=== PATIENT | male | born 1975 | race Caucasian/White ===

== ENCOUNTER 2020-02-06 07:18 | Emergency (ER) | payer OTHER, MEDICARE ==
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
[2020-02-06 08:53] LABS: ACETAMINOPHEN <2.0 ug/mL; BLOOD UREA NITROGEN,BUN 16 mg/dL (7.0-18.0); CARBON DIOXIDE,CO2 28.6 mmol/L (21.0-32.0); CHLORIDE,CL 106 mmol/L (98-107); GLUCOSE RANDOM 98 mg/dL (74-106); POTASSIUM,K 3.8 mmol/L (3.5-5.1); SODIUM,NA 143 mmol/L (136-148)
== END 2020-02-06 11:02 ==
LOC: MW.ED 07:18
DX: R45.851 Suicidal ideations (principal); I10 Essential (primary) hypertension
CPT/HCPCS: 36415; 80053; 80305-QW; 80307; 84443; 85025; 93005; 99285-25

== ENCOUNTER 2020-05-05 13:51 | Emergency (ER) | payer MEDICARE, OTHER ==
[2020-05-05] MEDS ORDERED: LORazepam 2 MG/ML SDV IVPUSH ONE ×2 (14:16→15:42)
[2020-05-05] MEDS ORDERED: MVI, Adult with Vitamin K 10 ML, Thiamine 100 MG, Folic Acid 1 MG in Sodium Chloride 0.... IV ONE ×4 (14:16)
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
[2020-05-05] MEDS ORDERED: Lactated Ringers 1,000 ML IV SCH (15:45)
[2020-05-05 15:56] LABS: BLOOD UREA NITROGEN,BUN 17 mg/dL (7.0-18.0); CARBON DIOXIDE,CO2 29.2 mmol/L (21.0-32.0); CHLORIDE,CL 104 mmol/L (98-107); GLUCOSE RANDOM 107 mg/dL (74-106); POTASSIUM,K 3.9 mmol/L (3.5-5.1); SODIUM,NA 141 mmol/L (136-148)
== END 2020-05-05 17:17 | disposition home or self-care (01) ==
LOC: MW.ED 13:51
DX: F10.230 Alcohol dependence with withdrawal, uncomplicated (principal); F32.9 Major depressive disorder, single episode, unspecified; I10 Essential (primary) hypertension; Z79.899 Other long term (current) drug therapy
CPT/HCPCS: 36415; 80053; 80307; 83735; 93005; 96361; 96365; 96375; 96376; 99285; J2060; J3411; J7030; J7120; 99283

== ENCOUNTER 2020-07-16 12:30 | Emergency (ER) | payer MEDICARE ==
--- NOTE | 2020-07-16 12:55 | PCM.SN.2 ---
- Free Text/Narrative Note: Heart rate = 111 bpm, sinus tachycardia, normal QRS interval, no STEMI. EKG and rhythm strip interpreted by me at 1247
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
[2020-07-16] MEDS ORDERED: LORazepam 2 MG/ML SDV IM ONE (13:07)
[2020-07-16] MEDS ORDERED: Nicotine 21 MG/24 Hr Patch TRDERM ONE (13:31)
[2020-07-16 13:51] LABS: BLOOD UREA NITROGEN,BUN 11 mg/dL (7.0-18.0); CHLORIDE,CL 104 mmol/L (98-107); GLUCOSE RANDOM 123 mg/dL (74-106); POTASSIUM,K 4.4 mmol/L (3.5-5.1); SODIUM,NA 139 mmol/L (136-148)
== END 2020-07-16 15:40 ==
LOC: MW.ED 12:30
DX: F31.9 Bipolar disorder, unspecified (principal); I10 Essential (primary) hypertension; Z79.899 Other long term (current) drug therapy
CPT/HCPCS: 36415; 80053; 80305; 80307; 81001; 83735; 84443; 85025; 93005; 96372; 99285; A9270; J2060

== ENCOUNTER 2020-10-07 18:21 | Emergency (ER) | payer SELFPAY ==
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
--- NOTE | 2020-10-07 19:10 | PCM.SN.2 ---
- Free Text/Narrative Note: Patient initially was told he needed to be evaluated through the ED for [facility] CRU unit. Patient states he is asymptomatic and does not want to be evaluated. He left without being seen. Staff informed him he could return at anytime if he felt he needed evaluation/care.
--- NOTE | 2020-10-16 08:31 | PCM.EKG ---
#1 Interpretation EKG Date: 10/07/20 Time: 20:44 Rhythm: NSR Rate (Beats/Min): 69 [place]: Normal P-Wave: Present QRS: Normal ST-T: Normal QT: Normal Comparison: No Change (07/16/20) EKG Interpretation Comments: Sinus Rhythm with benign early repol
== END 2020-10-07 19:16 | disposition left against medical advice (07) ==
LOC: MW.ED 18:21
DX: Z53.21 Procedure and treatment not carried out due to patient leaving prior to being seen by health care provider (principal)
CPT/HCPCS: 93005

== ENCOUNTER 2020-10-07 20:12 | Emergency (ER) | payer SELFPAY ==
[2020-10-07] MEDS ORDERED: LORazepam 2 MG/ML SDV IM ONE (20:37)
[2020-10-07] MEDS ORDERED: Ondansetron 4 MG Tab.DIS PO ONE (20:38)
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
== END 2020-10-07 21:10 | disposition home or self-care (01) ==
LOC: MW.ED 20:12
DX: F41.9 Anxiety disorder, unspecified (principal); F10.10 Alcohol abuse, uncomplicated; I10 Essential (primary) hypertension; Z79.899 Other long term (current) drug therapy
CPT/HCPCS: 82962; 96372; 99284; A9270; J2060

== ENCOUNTER 2020-10-08 00:50 | Emergency (ER) | payer MEDICARE ==
[2020-10-08] MEDS ORDERED: Ketorolac 15 MG/ML SDV IM ONE (01:30)
[2020-10-08] MEDS ORDERED: SUMAtriptan 6 MG/0.5 ML SDV SUBCUT ONE (02:14)
--- NOTE | 2020-10-08 02:50 | CT ---
INDICATION: Headache COMPARISON: None available. TECHNIQUE: CT examination of the head was performed with 5 mm thick axial and 2 mm thick coronal and sagittal sections without intravenous contrast. Images were obtained from the vertex of the skull through the skull base, and I examined the images with the brain and bone windows. Please note that all CT scans at this facility use dose modulation, iterative reconstruction, and/or weight-based dosing when appropriate to reduce radiation dose to as low as reasonably achievable. FINDINGS: : The brain is normal in appearance for the patient`s age on today`s study, with no sign of mass lesion, mass effect, hemorrhage, or edema. The ventricles and sulci are normal in appearance for the patient`s age. The visualized portions of the orbits are normal in appearance. The visualized portions of the paranasal sinuses and mastoids are clear. The osseous structures are normal in their appearance with no sign of abnormality in the skull base or calvarium. IMPRESSION: Normal noncontrast CT of the head for the patient`s age. Nothing seen to correlate with the history of headache. Please note that all CT scans at this facility use dose modulation, iterative reconstruction, and/or weight-based dosing when appropriate to reduce radiation dose to as low as reasonably achievable. Dictated by Anupam Richardson MD @ Oct 08 2020 2:45AM Signed by Dr. Anupam Richardson @ Oct 08 2020 2:47AM
[2020-10-08] MEDS ORDERED: Prochlorperazine 5 MG in Sodium Chloride 0.9% 50 ML IV ONE (03:02)
[2020-10-08] MEDS ORDERED: diphenhydrAMINE 50 MG/ML SDV IVPUSH ONE (03:03)
[2020-10-08] MEDS ORDERED: Prochlorperazine 10 MG/2 ML SDV ONE (03:07)
[2020-10-08] MEDS ORDERED: Prochlorperazine 10 MG/2 ML SDV IVPUSH ONE (03:09)
[2020-10-08] MEDS ORDERED: Dextrose 5%-Lactated Ringers 1,000 ML IV SCH (03:15)
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
--- NOTE | 2020-10-09 02:56 | PCM.EKG ---
#1 Interpretation EKG Date: 10/07/20 Time: 20:44 Rhythm: NSR Rate (Beats/Min): 69 [place]: Normal P-Wave: Present QRS: Normal ST-T: Normal QT: Normal Comparison: No Change (07/16/20) EKG Interpretation Comments: Sinus Rhythm with benign early repol
== END 2020-10-08 04:42 | disposition home or self-care (01) ==
LOC: MW.ED 00:50
DX: G44.009 Cluster headache syndrome, unspecified, not intractable (principal); G43.909 Migraine, unspecified, not intractable, without status migrainosus; I10 Essential (primary) hypertension; Z79.899 Other long term (current) drug therapy; Z72.0 Tobacco use
CPT/HCPCS: 70450; 96372; 96374; 96375; 99284; J0780; J1200; J1885; J3030; J7121

== ENCOUNTER 2020-11-08 20:37 | Emergency (ER) | payer SELFPAY ==
[2020-11-08] MEDS ORDERED: Sodium Chloride 0.9% 1,000 ML IV ONE (20:41)
[2020-11-08] MEDS ORDERED: Activated Charcoal/Sorbitol Susp 50 GM/240 ML Tube PO ONE (20:59)
[2020-11-08] MEDS ORDERED: Sodium Chloride 0.9% 1,000 ML IV SCH (21:15)
[2020-11-08 21:19] LABS: BLOOD UREA NITROGEN,BUN 12 mg/dL (7.0-18.0); CARBON DIOXIDE,CO2 24.5 mmol/L (21.0-32.0); CHLORIDE,CL 104 mmol/L (98-107); GLUCOSE RANDOM 119 mg/dL (74-106); POTASSIUM,K 4.2 mmol/L (3.5-5.1); SODIUM,NA 140 mmol/L (136-148)
[2020-11-08] MEDS ORDERED: Activated Charcoal/Sorbitol Susp 50 GM/240 ML Tube ONE (21:20)
[2020-11-08 21:47] LABS: ACETAMINOPHEN <2.0 ug/mL
[2020-11-08] MEDS ORDERED: Naloxone 0.4 MG/ML Syringe ONE (22:22)
[2020-11-08] MEDS ORDERED: Ketamine 500 mg/10 ML MDV ONE (22:33)
[2020-11-08] MEDS ORDERED: KETAMINE IV ONE (23:15)
[2020-11-08] MEDS ORDERED: SODIUM CHLORIDE 0.9% IV ONE (23:15)
--- NOTE | 2020-11-09 00:04 | CR ---
Indication: Status post intubation Technique: Chest 1 view Comparison: None Findings/Impression: An endotracheal tube with the tip approximately 5 cm above the anton. A nasogastric tube with the tip below the diaphragm. Grossly unremarkable cardiomediastinal silhouette for a portable technique. An elevated right hemidiaphragm. Increased bilateral interstitial markings with areas of bronchial wall thickening, most pronounced in the right suprahilar region. Correlate for bronchitis, an interstitial infectious process, or interstitial edema. No gross pleural effusions. No pneumothorax seen. No significant osseous abnormalities. Dictated by Marcelo Philip MD @ Nov 09 2020 12:00AM Signed by Dr. Marcelo Philip @ Nov 09 2020 12:04AM
--- NOTE | 2020-11-09 01:03 | EDM.PDOC ---
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 Communication Order [RC] STAT 11/08/20 21:15 Sodium Chloride 0.9% [Normal Saline] 1,000 ml IV ASDIRECTED 11/08/20 21:30 EKG 12 Lead [EKG Documentation Completion] [RC] STAT 11/08/20 21:44 Blood Glucose Check, Bedside [RC] ONETIME 11/08/20 23:15 Ketamine [Ketalar] 500 mg Sodium Chloride 0.9% [Normal Saline] 50 ml IV ONETIME - Assessment/Plan Last 24 Hours: My Active Orders 11/08/20 20:41 Cardiac Monitoring [RC] . DIRECTED EKG Documentation Completion [RC] STAT Pulse Oximetry [RC] ASDIRECTED 11/08/20 20:43 Blood Glucose Check, Bedside [RC] ONETIME 11/08/20 20:50 Communication Order [RC] STAT 11/08/20 21:15 Sodium Chloride 0.9% [Normal Saline] 1,000 ml IV ASDIRECTED 11/08/20 21:30 EKG 12 Lead [EKG Documentation Completion] [RC] STAT 11/08/20 21:44 Blood Glucose Check, Bedside [RC] ONETIME 11/08/20 23:15 Ketamine [Ketalar] 500 mg Sodium Chloride 0.9% [Normal Saline] 50 ml IV ONETIME
== END 2020-11-08 23:23 ==
LOC: MW.ED 20:37
DX: T46.5X2A Poisoning by other antihypertensive drugs, intentional self-harm, initial encounter (principal); T39.392A Poisoning by other nonsteroidal anti-inflammatory drugs [NSAID], intentional self-harm, initial encounter; T43.022A Poisoning by tetracyclic antidepressants, intentional self-harm, initial encounter; T50.2X2A Poisoning by carbonic-anhydrase inhibitors, benzothiadiazides and other diuretics, intentional self-harm, initial encounter; T38.1X2A Poisoning by thyroid hormones and substitutes, intentional self-harm, initial encounter; F10.129 Alcohol abuse with intoxication, unspecified; J96.00 Acute respiratory failure, unspecified whether with hypoxia or hypercapnia; G92 Toxic encephalopathy; I10 Essential (primary) hypertension; Z79.899 Other long term (current) drug therapy; Y90.4 Blood alcohol level of 80-99 mg/100 ml
CPT/HCPCS: 31500; 36415; 51702; 71045; 80053; 80143; 80179; 80305; 80307; 81003; 82550; 82962; 83605; 84439; 84443; 85025; 85610; 85730; 93005; 96374; 96375; 99285; J7030; 99291